=== PATIENT | male | born 1975 ===

== ENCOUNTER 2023-02-28 05:20 | Day surgery (SDC) | payer OTHER ==
[2023-02-22 12:37] LABS: URINE APPEARANCE Turbid; URINE BILIRRUBIN Negative (NEGATIVE); URINE BLOOD Negative; URINE COLOR Yellow; URINE GLUCOSE Negative (NEGATIVE); URINE LEUKOCYTE Trace; URINE NITRATE Negative; URINE PROTEIN Negative (NEGATIVE)
[2023-02-22 12:41] LABS: URINE BACTERIA 8.8 uL (0.0-1933)
[2023-02-22 12:52] LABS: HEMATOCRIT 47.8 % (39.0-48.0); HEMOGLOBIN 16.5 g/dL (13-16.00); MEAN CELL VOLUME 90.3 fL (80.0-100.00); MEAN CORPUSCULAR HEMOGLOBIN 31.3 pg (27.00-32.0); MEAN CORPUSCULAR HGB CONC 34.6 g/dl (32.0-36.0); PLATELET COUNT 348 K/uL (150-450); RED BLOOD COUNT 5.29 M/uL (4.00-6.00); RED CELL DISTRIBUTION WIDTH 14.3 % (11.5-14.5)
[2023-02-22 13:07] LABS: URINE EPITHELIAL CELLS 0.6 uL (0.0-38.8)
[2023-02-22 13:19] LABS: INR 0.96; PARTIAL THROMBOPLASTIN TIME 26.7 SECONDS (22.0-34.0); PROTHROMBIN TIME 10.1 SECONDS (9.0-11.5)
[2023-02-22 13:22] LABS: ALBUMIN 4.3 gm/dL (3.4-5.0); BILIRUBIN TOTAL 1.35 mg/dL (0.3-1.2); CALCIUM 10.4 mg/dL (8.5-10.1); CREATININE SERUM 1.08 mg/dL (0.70-1.30); GFR 73.29; GLOBULINA 3.2 G/DL (2.4-3.5); POTASSIUM 4.64 mEq/L (3.5-5.1); TOTAL PROTEIN 7.5 gm/dL (6.4-8.2)
[2023-02-28] MEDS ORDERED: TRAMADOL HCL50 MG PO (09:27)
[2023-02-28] MEDS ORDERED: TYLENOL325 MG PO (09:28)
[2023-02-28] MEDS ORDERED: SURFAK240 M1 PO (09:28)
[2023-02-28] MEDS ORDERED: POLY119PG PO (09:28)
== END 2023-02-28 11:40 | disposition home or self-care (01) ==
LOC: CIR.AMB 05:20
PROVIDERS: ATTEND Surgery
DX: K81.1 Chronic cholecystitis (principal); K42.9 Umbilical hernia without obstruction or gangrene; I10 Essential (primary) hypertension; Z20.822 Contact with and (suspected) exposure to COVID-19